=== PATIENT | female | born 2000 ===

== ENCOUNTER 2022-10-10 15:07 | Emergency (ER) | payer OTHER, SELFPAY ==
[2022-10-10] VITALS (7 sets, daily range): BP systolic 115–128; BP diastolic 56–71; PULSE 66–88; RESP 20; TEMP 37; O2SAT 95–100; BMI 31.1
--- NOTE | 2022-10-10 15:20 | DI.RAD.S_ITS ---
PROCEDURE: XR ELBOW LT MIN 3V INDICATIONS: injury at work TECHNIQUE: 3 views of the elbow were acquired. COMPARISON: None. FINDINGS: Bones: No fractures or dislocations. No suspicious bony lesions. Soft tissues: No elbow joint effusion. No suspicious soft tissue calcifications. IMPRESSION: Normal elbow plain films. Dictated by: Jorge Younger M.D. on 10/10/2022 at 14:36 Approved by: Jorge Younger M.D. on 10/10/2022 at 14:37
--- NOTE | 2022-10-10 19:06 | ED_ITS ---
HPI - Extremity Injury (Upper) <Katya Osman PA-C - Last Filed: 10/10/22 19:27> General Chief Complaint: Extremity Injury, Upper Stated Complaint: Hurt arm at work Time Seen by Provider: 10/10/22 18:05 Source: patient Mode of arrival: Family Vehicle History of Present Illness HPI narrative: 22-year-old female presents with concern for injury that occurred at work yesterday evening. 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 As she was falling she smashed her elbow into a shelf in the walk-in. She landed on her bottom and states that her hip felt a little bothered but mostly her left elbow was hurting. She did not hit her head or lose consciousness. She states that she got up and actually laughed about it with coworkers initially but by the time she was driving home from work she noticed her elbow was painful and seemed uncomfortable with movements. She iced it last night and has been trying not to use it today as it seems worse with movements, presented to the emergency department today for further evaluation. She denies numbness or tingling of the affected arm, previous injury to the affected arm, she does state sometimes she feels the pain radiates from the tip of her elbow down towards her wrist and also up towards her shoulder. She denies other complaints or concerns. Review of Systems <Katya Osman PA-C - Last Filed: 10/10/22 19:27> Review of Systems Narrative: Unremarkable except as noted in the HPI Patient History <Katya Osman PA-C - Last Filed: 10/10/22 19:27> Social History Smoking Status: Current some day smoker Smoking Status: Current some day smoker tobacco type: e-cigarettes alcohol intake frequency: 0-2 drinks per day Substance Use Type: does not use Exam <Katya Osman PA-C - Last Filed: 10/10/22 19:27> Narrative Exam Narrative: GENERAL: 22 year old patient appears stated age. Well-developed patient, in mild distress. HEAD: Atraumatic. Normocephalic. EYES: Pupils equal round and reactive. Extraocular motions intact. No scleral icterus. No injection or drainage. ENT: Nose without bleeding, purulent drainage. Airway patent. NECK: Trachea midline. Non tender CARDIOVASCULAR: Regular rate and rhythm without murmurs, gallops, or rubs. RESPIRATORY: Clear to auscultation. Breath sounds equal bilaterally. No wheezes, rales, or rhonchi. GASTROINTESTINAL: Abdomen soft, non-tender, nondistended. EXTREMITIES: There is slight swelling about the olecranon with a small abrasion present and slightly erythematous skin. It is tender to palpation. Humerus ulna and radius are nontender, range of motion of the wrist and strength of the wrist and fingers are intact in the affected left extremity. She does have some slight tenderness with palpation over the left lateral trapezius, pronation supination are intact. Patient holds her arm in a position of comfort in front of her belly at 90?. Range of motion of the shoulder is intact. Strength is also intact. No edema or joint tenderness. BACK: Nontender without deformity or crepitance. No flank tenderness. NEURO: AOx3. Gait normal SKIN: No rash or erythema of visible areas Initial Vital Signs Initial Vital Signs: Vital Signs Temperature 98.6 F 10/10/22 15:14 Pulse Rate 66 10/10/22 15:14 Respiratory Rate 20 10/10/22 15:14 Blood Pressure 128/61 10/10/22 15:14 Pulse Oximetry 95 10/10/22 15:14 Oxygen Delivery Method 10/10/22 15:14 <Salvatore Renee DO - Last Filed: 10/10/22 19:56> Initial Vital Signs Initial Vital Signs: Vital Signs Temperature 98.6 F 10/10/22 15:14 Pulse Rate 66 10/10/22 15:14 Respiratory Rate 20 10/10/22 15:14 Blood Pressure 128/61 10/10/22 15:14 Pulse Oximetry 95 10/10/22 15:14 Oxygen Delivery Method 10/10/22 15:14 Course <Katya Osman PA-C - Last Filed: 10/10/22 19:27> Orders Ordered: ED Orders 10/10/22 15:20 XR elbow LT min 3V Stat Vital Signs Vital signs: Vital Signs - 8 hr 10/10/22 15:14 10/10/22 17:44 10/10/22 17:46 Temperature 98.6 F Pulse Rate 66 83 Respiratory Rate 20 Blood Pressure 128/61 124/71 Pulse Oximetry 95 100 Oxygen Delivery Method Room Air 10/10/22 17:46 10/10/22 18:00 10/10/22 18:01 Temperature Pulse Rate 83 88 Respiratory Rate Blood Pressure 115/56 L Pulse Oximetry 99 99 Oxygen Delivery Method 10/10/22 18:01 10/10/22 18:30 10/10/22 18:30 Temperature Pulse Rate 86 86 Respiratory Rate Blood Pressure 128/61 Pulse Oximetry 98 98 Oxygen Delivery Method Room Air Room Air 10/10/22 19:00 10/10/22 19:00 Temperature Pulse Rate 75 Respiratory Rate Blood Pressure 123/65 Pulse Oximetry 98 Oxygen Delivery Method Room Air <Salvatore Renee DO - Last Filed: 10/10/22 19:56> Orders Ordered: ED Orders 10/10/22 15:20 XR elbow LT min 3V Stat Vital Signs Vital signs: Vital Signs - 8 hr 10/10/22 15:14 10/10/22 17:44 10/10/22 17:46 Temperature 98.6 F Pulse Rate 66 83 Respiratory Rate 20 Blood Pressure 128/61 124/71 Pulse Oximetry 95 100 Oxygen Delivery Method Room Air 10/10/22 17:46 10/10/22 18:00 10/10/22 18:01 Temperature Pulse Rate 83 88 Respiratory Rate Blood Pressure 115/56 L Pulse Oximetry 99 99 Oxygen Delivery Method 10/10/22 18:01 10/10/22 18:30 10/10/22 18:30 Temperature Pulse Rate 86 86 Respiratory Rate Blood Pressure 128/61 Pulse Oximetry 98 98 Oxygen Delivery Method Room Air Room Air 10/10/22 19:00 10/10/22 19:00 Temperature Pulse Rate 75 Respiratory Rate Blood Pressure 123/65 Pulse Oximetry 98 Oxygen Delivery Method Room Air MDM - Extremity Injury (Upper) <Katya Osman PA-C - Last Filed: 10/10/22 19:27> Imaging Data Extremity x-ray #1: Radiologist's Impression: [address] [address] XRay Report Signed Patient: Vicky Person MR#: [id number] : 2000 Acct:[id number] Age/Sex: 22 / F Date of Service: 10/10/22 Loc: ED Accession Number: [id number] ?? Procedure: XR elbow LT min 3V Ordering Provider: Lili Kaur D.O. PROCEDURE:? XR ELBOW LT MIN 3V ? INDICATIONS:? injury at work ? TECHNIQUE:? 3 views of the elbow were acquired.? ? COMPARISON:? None. ? FINDINGS:? ? Bones:? No fractures or dislocations.? No suspicious bony lesions.? ? Soft tissues:? No elbow joint effusion.? No suspicious soft tissue calcifications.? ? ? IMPRESSION:? Normal elbow plain films. ? ? Dictated by: Jorge Younger M.D. on 10/10/2022 at 14:36 ? ? Approved by: Joreg Younger M.D. on 10/10/2022 at 14:37?? MDM Narrative Medical decision making narrative: This is a well-appearing 22-year-old female who presents with an injury sustained at work to her left elbow sustained last night, and I paperwork completed during the patient's visit. Patient is counseled that she will need follow-up with an L and I provider if she does have persistent symptoms. Based on exam and history that she may have a mild traumatic olecranon bursitis, as well as a mild strain of her trapezius, she may have some mild bony bruising of the olecranon as well. Range of motion does appear to be intact although she holds her arm in position of comfort at 90? and has some increased pain with straightening and flexing her arm. She has some slight swelling present at the olecranon and a small abrasion consistent with the injury described. She is advised to continue ice on and off, provided with a sling for her left arm, encouraged to use Tylenol and ibuprofen or Motrin alternating for pain. Advised she should be on light duty and not be using this arm much for the next 7-10 days. And that if she has persistent symptoms or worsening symptoms she should definitely seek re-evaluation. Return precautions provided, follow-up plan discussed, all questions answered. L and I paperwork and return [place] work [id number]. Discharge Plan Departure Patient Disposition: Home Clinical Impression: Bursitis, olecranon, Strain of left trapezius muscle Activity Restrictions/Additional Instructions: Thank you for letting us be part of her care today in the emergency department. We completed your L and I paperwork during your stay and shared an activity prescription form with you to take bacterial employer. I do want you to be on light duty or minimize use of your left arm for the next 5-10 days. If there is work that you can do that avoids lifting with this arm or a lot of movement with it it is fine to continue working. Otherwise I recommend wearing the sling for the next few days at least for comfort, you can try an Dong wrap for compression, you can may ice on and off for the next couple of days and Tylenol and ibuprofen or Motrin for pain. I suspect that you may have slightly pulled her trapezius muscle and that you Bang to your olecranon which is the bone at the end of your elbow. And may have a slight bursitis or inflammation of the bursa at the olecranon due to the injury. This should heal on its own and improve with time. Your x-rays today were normal appearing. There is no evidence of an emergent or life threatening illness at this time, but follow up with your doctor in 1-2 days is recommended nonetheless to continue to rule out serious underlying causes of your symptoms. Please call the office for an appointment. Please return to the Emergency Department for any worsening or persistent symptoms. Please take medications as directed. Stand Alone Forms: Patient Portal/API <Salvatore Renee, DO - Last Filed: 10/10/22 19:56> [facility]: Dr Renee Co-Sign Statement: [facility]. This chart is signed by myself for administrative purposes only. I did not have direct contact with this patient during this visit. They were seen independently by the APC.
== END 2022-10-10 19:36 | disposition home or self-care (01) ==
PROVIDERS: Emergency Provider Student in an Organized Health Care Education/Training Program
DX: S46.812A Strain of other muscles, fascia and tendons at shoulder and upper arm level, left arm, initial encounter (principal); M70.22 Olecranon bursitis, left elbow; W01.0XXA Fall on same level from slipping, tripping and stumbling without subsequent striking against object, initial encounter; Y99.0 Civilian activity done for income or pay
CPT/HCPCS: 73080; 99283